=== PATIENT | male | born 1980 | race Hispanic/Latino ===

== ENCOUNTER 2019-09-28 07:43 | Day surgery (SDC) | payer OTHER ==
[2019-09-28 07:50] VITALS: BP 147/67
--- NOTE | 2019-09-28 07:50 | NUR ---
BASELINE CORTISOL LEVEL DRAWN.
[2019-09-28] MEDS ORDERED: COSYNTROPIN 0.25 MG VIAL IVP SCH (09:00)
--- NOTE | 2019-09-28 09:45 | NUR ---
COSYNTROPIN 0.25MG IV NOW AT THIS TIME OVER 2 MINUTES.
--- NOTE | 2019-09-28 10:15 | NUR ---
FIRST POST LEVEL DRAWN AT THIS TIME.
[2019-09-28 10:45] VITALS: BP 135/65
== END 2019-09-28 10:50 | disposition home or self-care (01) ==
LOC: DAH 07:43
PROVIDERS: ATTEND Internal Medicine Endocrinology, Diabetes & Metabolism
DX: D35.2 Benign neoplasm of pituitary gland (principal); I10 Essential (primary) hypertension
CPT/HCPCS: 36415; 82533 ×3; A4215; A4216; A4221; A4223; A4606; J0834